=== PATIENT | female | born 1985 | race Caucasian/White ===

== ENCOUNTER 2016-08-04 11:07 | Outpatient (RCR) | payer OTHER | END 2016-11-02 | disposition home or self-care (01) | LOC: WSOH | DX: Z53.9 Procedure and treatment not carried out, unspecified reason (principal) ==

== ENCOUNTER 2016-08-04 11:32 | Outpatient (RCR) | payer OTHER | END 2016-11-02 | LOC: WSOH | DX: Z77.21 Contact with and (suspected) exposure to potentially hazardous body fluids (principal); W46.0XXA Contact with hypodermic needle, initial encounter; Y99.0 Civilian activity done for income or pay ==

== ENCOUNTER 2016-10-21 11:46 | Outpatient (RCR) | payer OTHER | END 2017-01-19 | LOC: WSOH | DX: Z77.21 Contact with and (suspected) exposure to potentially hazardous body fluids (principal); W46.1XXA Contact with contaminated hypodermic needle, initial encounter; Y99.0 Civilian activity done for income or pay ==

== ENCOUNTER 2022-01-24 09:15 | Outpatient (RCR) | payer MEDICAID | END 2022-01-26 | disposition home or self-care (01) | LOC: MKS.ESL.PT | DX: M54.50 Low back pain, unspecified (principal) ==

== ENCOUNTER 2022-02-10 09:30 | Outpatient (RCR) | payer MEDICAID | END 2022-02-26 | disposition home or self-care (01) | LOC: MKS.ESL.PT | DX: M54.50 Low back pain, unspecified (principal) ==